=== PATIENT | male | born 1985 | race Caucasian/White ===

== ENCOUNTER 2017-08-08 19:29 | Emergency (ER) | payer SELFPAY ==
--- NOTE | 2017-08-08 19:55 | EDM.PDOC ---
ED HPI GENERAL MEDICAL PROBLEM - General Chief Complaint: General Stated Complaint: MEDICAL CLEARANCE Time Seen by Provider: 08/08/17 19:45 Source of Information: Reports: Patient History Limitations: Reports: No Limitations - History of Present Illness INITIAL COMMENTS - FREE TEXT/NARRATIVE: HISTORY AND PHYSICAL: History of present illness: Patient is a 32-year-old male who presents to the emergency room by law enforcement for medical clearance. States he was pulled over with alcohol intoxication and needs medical clearance to be incarcerated. There was no traumatic event surrounding the arrest. Patient is tearful stating he does not want to be here. He denies any chest pain, shortness of breath, nausea, vomiting or diarrhea. Denies any fever or chills. Prior evening had no health concerns. Denies any health problems and does not take any prescribed or [id number] medications routinely. Review of systems: As per history of present illness and below otherwise all systems reviewed and negative. Past medical history: As per history of present illness and as reviewed below otherwise noncontributory. Surgical history: As per history of present illness and as reviewed below otherwise noncontributory. Social history: No reported history of drug or alcohol abuse. Family history: As per history of present illness and as reviewed below otherwise noncontributory. Physical exam: General: Alert and oriented. Able to speak in full sentences without slurring his words. Ambulatory with steady gait. HEENT: Atraumatic, normocephalic, pupils reactive, negative for conjunctival pallor or scleral icterus, mucous membranes moist, throat clear, neck supple, nontender, trachea midline. Lungs: Clear to auscultation, breath sounds equal bilaterally, chest nontender. Heart: S1S2, regular rate and rhythm without any overt murmurs Abdomen: Soft, nondistended, nontender. Negative for masses or hepatosplenomegaly. Negative for costovertebral tenderness. Pelvis: Stable nontender. Genitourinary: Deferred. Rectal: Deferred. Extremities: Atraumatic, negative for cords or calf pain. Neurovascular unremarkable. Neuro: Awake, alert, oriented. Cranial nerves II through XII unremarkable. Cerebellum unremarkable. Motor and sensory unremarkable throughout. Exam nonfocal. There was no traumatic event surrounding the arrest. Therefore no radiology's standings are needed at this time. Patient has no complaints or concerns regarding this visit. Bedside glucose was reviewed by me. Instructed patient to have his blood pressure re-evaluated with his primary care provider. Medical clearance form was filled out and given to law enforcement. Patient voices understanding. Diagnostics: Bedside glucose Therapeutics: [] Impression: Medical clearance for incarceration Plan: 1. You have been medically cleared from the emergency department. Please stop drinking alcohol. 2. Follow-up with your primary care provider in the next 1-2 days. Return to the ED as needed as discussed. Definitive disposition and diagnosis as appropriate pending reevaluation and review of above. Onset: Today - Related Data Allergies Allergy/AdvReac Type Severity Reaction Status Date / Time No Known Allergies Allergy Verified 08/08/17 19:46 Home Meds: Home Meds . [No Known Home Meds] 08/08/17 [History] ED ROS GENERAL - Review of Systems Review Of Systems: ROS reveals no pertinent complaints other than HPI. ED EXAM, GENERAL - Physical Exam Exam: See Below (See dictation) Course - Vital Signs Last Recorded V/S: Last Vital Signs Temp 36.7 C 08/08/17 19:40 Pulse 108 H 08/08/17 19:40 Resp 20 08/08/17 19:40 BP 161/101 H 08/08/17 19:40 Pulse Ox 100 08/08/17 19:40 - Orders/Labs/Meds Orders: Active Orders 24 hr Category Date Time Status Glucose [Blood Glucose Check, Bedside] [RC] ONETIME Care 08/08/17 19:47 Ordered Departure - Departure Time of Disposition: 19:55 Disposition: Home, Self-Care 01 Clinical Impression: Medical clearance for incarceration - Discharge Information Referrals: PCP,None [Primary Care Provider] - Additional Instructions: My general discharge The following information is given to patients seen in the emergency department who are being discharged to home. This information is to outline your options for follow-up care. We provide all patients seen in our emergency department with a follow-up referral. The need for follow-up, as well as the timing and circumstances, are variable depending upon the specifics of your emergency department visit. If you don't have a primary care physician on staff, we will provide you with a referral. We always advise you to contact your personal physician following an emergency department visit to inform them of the circumstance of the visit and for follow-up with them and/or the need for any referrals to a consulting specialist. The emergency department will also refer you to a specialist when appropriate. This referral assures that you have the opportunity for follow-up care with a specialist. All of these measure are taken in an effort to provide you with optimal care, which includes your follow-up. Under all circumstances we always encourage you to contact your private physician who remains a resource for coordinating your care. When calling for follow-up care, please make the office aware that this follow-up is from your recent emergency room visit. If for any reason you are refused follow-up, please contact the Emergency Department at and asked to speak to the emergency department charge nurse. Primary Care [address] [place] [id number] 1. You have been medically cleared from the emergency department. Please stop drinking alcohol. 2. Please follow up with your primary care provider to re-assess your blood pressure. 3. Follow-up with your primary care provider in the next 1-2 days. Return to the ED as needed as discussed. - My Orders Last 24 Hours: My Active Orders 08/08/17 19:47 Glucose [Blood Glucose Check, Bedside] [] ONETIME - Assessment/Plan Last 24 Hours: My Active Orders 08/08/17 19:47 Glucose [Blood Glucose Check, Bedside] [RC] ONETIME
== END 2017-08-08 20:00 ==
LOC: MW.ED 19:29
DX: Z02.89 Encounter for other administrative examinations (principal)
CPT/HCPCS: 82962; 99282; 99283